=== PATIENT | male | born 1945 | race Caucasian/White ===

== ENCOUNTER 2019-06-17 18:14 | Emergency (ER) | payer BC, MEDICARE ==
[~2019-06-17] VITALS: Ht 188 cm; Wt 123.9 kg
[2019-06-17] MEDS ORDERED: NS 1,000 ML IV ONE (18:30)
[2019-06-17] MEDS ORDERED: ONDANSETRON 4MG/2ML VIAL (J2405) IV ONE (18:30)
[2019-06-17] MEDS ORDERED: CLOPIDOGREL 300 MG TAB (PLAVIX) PO ONE ×2 (18:30→18:45)
[2019-06-17] MEDS ORDERED: HEPARIN DRIP 25,000 UNITS in IV 1 EA IV SCH (18:36)
[2019-06-17] MEDS: fentaNYL 100 MCG/2 ML INJECTION (J3010) IV PRN ×2 (18:36→19:08)
[2019-06-17] MEDS ORDERED: TENECTEPLASE 50 MG KIT (TNKase) (J3101 PER 1MG) As Ordered ONE (18:38)
[2019-06-17] MEDS ORDERED: LOSA50TA88 PO (18:40)
[2019-06-17] MEDS ORDERED: ROSU10TA6 PO (18:40)
[2019-06-17 18:43] LABS: BASO # 0.1 10^3/uL (0.0-0.2); BASO % 0.6 % (0.0-1.0); EOS # 0.2 10^3/uL (0.0-0.5); EOS % 1.6 % (0.0-3.0); HEMATOCRIT 50.3 % (42.0-52.0); HEMOGLOBIN 16.4 g/dl (13.5-17.5); LYMPH # 2.3 10^3/uL (1.5-5.0); LYMPH % 20.5 % (24.0-44.0); MEAN CORPUSCULAR HEMOGLOBIN 30.9 pg (27.0-33.0); MEAN CORPUSCULAR HGB CONC 32.6 g/dl (32.0-36.5); MEAN CORPUSCULAR VOLUME 94.9 fl (80.0-96.0); MONO # 1.5 10^3/uL (0.0-0.8); MONO % 12.9 % (0.0-5.0); NEUTROPHILS # 7.2 10^3/uL (1.5-8.5); NEUTROPHILS % 63.4 % (36.0-66.0); PLATELET COUNT, AUTOMATED 268 10^3/uL (150-450); WHITE BLOOD COUNT 11.3 10^3/uL (4.0-10.0)
[2019-06-17] MEDS ORDERED: HEPARIN SOD (PORCINE) 5000 UNITS/ML VIAL (J1644 PER 1000UNITS) IV ONE (18:45)
[2019-06-17] MEDS ORDERED: TENECTEPLASE 50 MG KIT (TNKase) (J3101 PER 1MG) IV ONE (18:45)
[2019-06-17 18:53] LABS: INR 1.11
[2019-06-17 18:54] LABS: PARTIAL THROMBOPLASTIN TIME 30.5 SECONDS (25.0-38.4)
[2019-06-17 19:09] VITALS: BP 121/78
[2019-06-17 19:11] LABS: ALBUMIN 3.7 GM/DL (3.2-5.2); ALT/SGPT 24 U/L (12-78); BILIRUBIN,DIRECT 0.1 MG/DL (0.0-0.2); BILIRUBIN,TOTAL 0.4 MG/DL (0.2-1.0); BLOOD UREA NITROGEN 38 MG/DL (7-18); CALCIUM LEVEL 8.8 MG/DL (8.8-10.2); CARBON DIOXIDE LEVEL 24 MEQ/L (21-32); CHLORIDE LEVEL 110 MEQ/L (98-107); CK-MB VALUE MASS < 1.0 NG/ML (<3.6); CPK CREATINE PHOSPHOKINASE 63 U/L (39-308); CREATININE FOR GFR 2.34 MG/DL (0.70-1.30); GLOMERULAR FILTRATION RATE 29.2 (>42); GLUCOSE, FASTING 123 MG/DL (70-100); LIPASE 225 U/L (73-393); MB/CK RELATIVE INDEX 1.59 (< OR =4); POTASSIUM SERUM 4.6 MEQ/L (3.5-5.1); SODIUM LEVEL 142 MEQ/L (136-145); TROPONIN I 0.05 NG/ML (< 0.10)
--- NOTE | 2019-06-17 20:10 | REP ---
CHEST, SINGLE VIEW: Single view of the chest is performed. There is no acute infiltrate. There is mild cardiomegaly. Mediastinal silhouette appears unremarkable. IMPRESSION: Mild cardiomegaly. No acute infiltrate. Electronically Signed by Jordan Richardson MD 06/17/2019 08:25 P
--- NOTE | 2019-06-18 08:10 | ECGEPIP ---
[facility] - ED Test Date: 2019-06-17 Pat Name: SHERIDAN SAWYER Department: Room: - Gender: Male [employer] Quality Tester: ALEXA : 1945 Requested By: Hiram Fuller Order Number: [id number] Reading MD: Hiram Mcclellan Measurements Intervals [place] Rate: 69 P: MO: 0 QRS: 18 QRSD: 94 T: -57 QT: 385 QTc: 413 Interpretive Statements SINUS RHYTHM WITH FREQUENT SUPRAVENTRICULAR PREMATURE COMPLEXES LOW QRS VOLTAGE ANTEROSEPTAL ST ELEVATION ACUTE [place] Electronically Signed on 06-18-2019 8:10:13 EST by Hiram Mcclellan
== END 2019-06-17 19:19 | disposition short-term general hospital (02) ==
LOC: M ED 18:14 → EDBD 18:14 → M ED 19:19
DX: I21.09 ST elevation (STEMI) myocardial infarction involving other coronary artery of anterior wall (principal); R06.02 Shortness of breath; I10 Essential (primary) hypertension; E78.5 Hyperlipidemia, unspecified; Z87.891 Personal history of nicotine dependence; Z82.49 Family history of ischemic heart disease and other diseases of the circulatory system; Z79.899 Other long term (current) drug therapy; Z88.0 Allergy status to penicillin
CPT/HCPCS: 36415; 71045; 80047; 80048; 80076; 82550; 82553; 83690; 84484; 85025; 85610; 85730; 93005; 93041; 94760; 96374; 96375; 96376; 99285; J1644; J2405; J3010; J3101